=== PATIENT | male | born 1990 | race Caucasian/White ===

== ENCOUNTER 2021-04-06 10:32 | Emergency (ER) | payer BC ==
[~2021-04-06] VITALS: Ht 185.4 cm; Wt 95.2 kg
[2021-04-06] MEDS ORDERED: ONDA4ODT MM (11:00)
== END 2021-04-06 11:01 | disposition home or self-care (01) ==
LOC: ER 10:32
DX: U07.1 COVID-19 (principal); R11.0 Nausea; R55 Syncope and collapse
CPT/HCPCS: 99282

== ENCOUNTER → 2021-12-05 | Outpatient (CLI) | payer BC ==
[~2021-12-05] MED LIST: ONDA4ODT MM
== END ==
LOC: LAB SHORT 09:15
DX: J02.9 Acute pharyngitis, unspecified (principal)
CPT/HCPCS: 87081